=== PATIENT | male | born 1955 | race Caucasian/White ===

== ENCOUNTER → 2016-09-13 | Outpatient (CLI) | payer BC ==
[~2016-09-13] MED LIST: DOC-Q-LACE100 MG PO; GABAPENTIN300 MG PO; NAPROSYN-EC500 MG PO; OXAYDO7.5 MG; ZANTAC PO
--- NOTE | ~2016-09-13 | NM22 ---
[facility] A Service of [facility] & [facility] RADIOLOGY TEXT RESULTS PATIENT: NUBIA BURDEN LOCATION: CGUS : 55 UNIT #: [id number] AGE: [address]: Vidal Cruz MD SEX: M ORDER DR: [id number] [facility] [address] [place], [place] [address] [id number] O MR#: [id number] Acc #: [id number] NAME: NUBIA BURDEN : 1955 SEX: M STUDY DATE/TIME: 09/13/2016 8:07 UNIT: CGUS ROOM: STUDY DESCRIPTION: NM Hepatobiliary W GB Pharm Attending Physician: Vidal Cruz M.D. Ordering Physician: Vidal Cruz M.D. Primary Care Physician: Lexa Fuentes M.D. MEDICAL IMAGING REPORT This report is preliminary unless electronic signature is present EXAM Radionuclide biliary scan 09/13/2016 HISTORY Right upper quadrant pain. Right upper quadrant pain, cramping constantly worsens with fatty food, nausea, vomiting, alternating constipation, diarrhea, bloating 7-8 years, recently getting worse 2 months ago, attacks and last up to 10 hours, blood in stools a lot for about 10 years. FINDINGS Following intravenous administration of 5.66 mCi technetium 99m Choletec, static images of the abdomen obtained at 15-minute intervals over 60 minutes. The patient then received 1.4 mcg Kinevac by 30-minute intravenous infusion. Images obtained before and after Kinevac infusion. Region of interest drawn around gallbladder and gallbladder ejection fraction calculated. Homogeneous distribution of radiotracer throughout the liver at 15 minutes post administration. Radiotracer visualized in common bile duct and small bowel 15 minutes post administration. Radiotracer seen in the gallbladder at 30 minutes post administration. During initial hour of study radiotracer accumulates in gallbladder and small bowel. There is no evidence of acute cholecystitis or cystic duct obstruction. With 30-minute Kinevac infusion the 30-minute ejection fraction is 28.7%. This is below the normal value greater than or equal to 30%. The findings suggest some degree of gallbladder contractile dysfunction. Dictated by... Vidal Sevilla M.D. THIS IS AN ELECTRONICALLY VERIFIED REPORT Vidal Sevilla M.D. at 09/14/2016 6:32 PM [facility] A Service of [facility] RADIOLOGY TEXT RESULTS PATIENT: NUBIA BURDEN LOCATION: [facility] : 55 UNIT #: [id number] AGE: [address]: Vidal Cruz MD SEX: M ORDER DR: CHICO/bart TD: 09/13/2016 16:22 JOB #: [id number] MEDICAL IMAGING REPORT Page 1 of 1 COPY
--- NOTE | ~2016-09-13 | US6 ---
[facility] A Service of [facility] & [facility] RADIOLOGY TEXT RESULTS PATIENT: NUBIA BURDEN LOCATION: CGUS : 55 UNIT #: [id number] AGE: [address]: Vidal Cruz MD SEX: M ORDER DR: [id number] [facility] [address] [place], [place] [address] [id number] O MR#: [id number] Acc #: [id number] NAME: NUBIA BURDEN : 1955 SEX: M STUDY DATE/TIME: 09/13/2016 7:35 UNIT: CGUS ROOM: STUDY DESCRIPTION: US Abdominal Limited Attending Physician: Vidal Cruz M.D. Ordering Physician: Vidal Cruz M.D. Primary Care Physician: Lexa Fuentes M.D. MEDICAL IMAGING REPORT This report is preliminary unless electronic signature is present EXAM Right upper quadrant ultrasound 09/13 INDICATIONS Abdominal pain over the last 6 years. FINDINGS Sonographic evaluation is performed of the right quadrant in multiple planes. No comparison. One image shows an ovoid hypoechoic lesion at the mid body of the pancreas measuring about 1.6 x 1.0 cm. It is unknown if this is a blood vessel or a portion of the duct or a true lesion. Followup with pancreas protocol CT with and without contrast is recommended. Liver appears echogenic compatible with fatty infiltration. No focal liver lesion. Right kidney is morphologically normal and nonobstructed. Gallbladder is normal. No gallstones are seen. There is no gallbladder wall thickening. Common duct is normal at 2 mm internal diameter. IMPRESSION 1. The gallbladder is normal. 2. Hepatic steatosis. 3. Potential hypoechoic lesion in the body of the pancreas. Followup with pancreas protocol CT with and without contrast is recommended. Dictated by... Sammy Sotomayor Jr., M.D. THIS IS AN ELECTRONICALLY VERIFIED REPORT Sammy Sotomayor Jr., M.D. at 09/14/2016 5:53 AM BERTIN/bart TD: 09/13/2016 17:52 JOB #: [id number] [facility] A Service of [facility] & [facility] RADIOLOGY TEXT RESULTS PATIENT: NUBIA BURDEN LOCATION: [facility] #: [id number] : 55 UNIT #: [id number] AGE: [address]: Vidal Cruz MD SEX: M ORDER DR: MEDICAL IMAGING REPORT Page 1 of 1 COPY
== END | disposition home or self-care (01) ==
LOC: CGUS 07:06
DX: R10.11 Right upper quadrant pain (principal); K76.0 Fatty (change of) liver, not elsewhere classified; K86.89 Other specified diseases of pancreas
CPT/HCPCS: 76705; 78227; A9537; J2805

== ENCOUNTER → 2016-09-15 | Day surgery (SDC) | payer BC ==
--- NOTE | ~2016-09-15 | OR ---
Unit #: [id number] #: [id number] Patient: NUBIA BURDEN [id number] [address] [address] [id number] O MR#: [id number] NAME: NUBIA BURDEN ROOM: Date of Procedure: 09/15/2016 Admission Date: 09/15/2016 Surgeon: Vidal Cruz M.D. : 1955 Attending Physician: Vidal Cruz M.D. Primary Care Physician: Lexa Fuentes M.D. OPERATIVE REPORT PREOPERATIVE DIAGNOSES Abdominal pain, history of colonic polyps. POSTOPERATIVE DIAGNOSIS Severe sigmoid colitis. PROCEDURES PERFORMED 1. Colonoscopy to cecum. 2. Multiple biopsies of sigmoid colon. ANESTHESIA IV sedation. COMPLICATIONS None. INDICATIONS FOR PROCEDURE The patient is a 61-year-old gentleman, who presents with abdominal pain. He has had history of polyps. DESCRIPTION OF PROCEDURE The patient was taken to the operating theater and placed in left lateral decubitus position. IV sedation was initiated. Digital rectal exam was normal. Colonoscope was then passed under direct vision, navigated to the cecum. The patient had excellent prep. He has severe focal colitis probably measuring 15 cm encompassing the sigmoid colon in circumferential pattern. There were no diverticula noted. Biopsies were taken. Hemostasis was adequate. He tolerated the procedure well and sent to recovery room in good condition. PLAN We will treat with Flagyl for 10 days. We will follow up on biopsies. Dictated by... Vidal Cruz M.D. JNO/treasurel TD: 09/15/2016 14:11 JOB #: [id number] Unit #: [id number] #: [id number] Patient: NUBIA BURDEN OPERATIVE REPORT Page 1 of 1 X Vidal Cruz MD X PROCEDURE OPERATIVE NOTE
== END | disposition home or self-care (01) ==
LOC: COPS 09:14
DX: K52.9 Noninfective gastroenteritis and colitis, unspecified (principal); K21.9 Gastro-esophageal reflux disease without esophagitis; E78.00 Pure hypercholesterolemia, unspecified; F41.9 Anxiety disorder, unspecified; M17.9 Osteoarthritis of knee, unspecified; Z86.010 Personal history of colon polyps; Z79.899 Other long term (current) drug therapy; Z82.49 Family history of ischemic heart disease and other diseases of the circulatory system; Z83.3 Family history of diabetes mellitus
CPT/HCPCS: 88305

== ENCOUNTER → 2016-11-02 | Outpatient (CLI) | payer BC ==
--- NOTE | ~2016-11-02 | EKG ---
PATIENT: NUBIA BURDEN UNIT #: [id number] Ventricular Rate: 68 BPM Atrial Rate: 68 BPM P-R Interval: 176 ms QRS Duration: 90 ms Q-T Interval: 388 ms QTC Calculation(Bezet): 412 ms P Shelby: 44 degrees Calculated R Shelby: 19 degrees Calculated T Shelby: 27 degrees Diagnosis Line: Normal sinus rhythm Diagnosis Line: Normal ECG Diagnosis Line: No previous ECGs available Diagnosis Line: Confirmed by RAMON RILEY MD ([id number]) on Diagnosis Line: 11/03/2016 7:32:01 AM INTERPRETING MD: OSVALDO ZEE
[2016-11-02 09:23] LABS: HEMATOCRIT 44.6 % (38.0-50.0); MEAN CORPUSCULAR HEMOGLOBIN 30.2 PG (28-34); MEAN CORPUSCULAR HGB CONC 33.6 g/dL (30-36); MEAN PLATELET VOLUME 7.5 FL (6.5-11.5); RED BLOOD COUNT 4.95 X10e (3.90-5.60); RED CELL DISTRIBUTION WIDTH 13.5 % (11.0-15.5); WHITE BLOOD COUNT 7.4 X10e3 (4.0-10.5)
== END | disposition home or self-care (01) ==
LOC: CAMB 07:27
PROVIDERS: Surgery
DX: Z01.818 Encounter for other preprocedural examination (principal); K43.9 Ventral hernia without obstruction or gangrene
CPT/HCPCS: 36415; 85027; 93005

== ENCOUNTER → 2016-11-10 | Day surgery (SDC) | payer BC ==
--- NOTE | ~2016-11-10 | OR ---
Unit #: [id number] #: [id number] Patient: NUBIA BURDEN [id number] [address] [address] [id number] O MR#: [id number] NAME: NUBIA BURDEN ROOM: Date of Procedure: 11/10/2016 Admission Date: 11/10/2016 Surgeon: Vidal Cruz M.D. : 1955 Attending Physician: Vidal Cruz M.D. Referring Physician: Vidal Cruz M.D. Primary Care Physician: Lexa Fuentes M.D. OPERATIVE REPORT PREOPERATIVE DIAGNOSES 1. Recurrent incarcerated incisional hernias x2. 2. Symptomatic cholelithiasis. POSTOPERATIVE DIAGNOSES 1. Recurrent incarcerated incisional hernias x2. 2. Symptomatic cholelithiasis. 3. Hernia measuring 4 cm diameter and 2 cm in diameter. PROCEDURE PERFORMED 1. Laparoscopic ventral hernia repair of incarcerated incisional recurrent hernia x2. 2. Laparoscopic cholecystectomy. ANESTHESIA General. ESTIMATED BLOOD LOSS 50 mL. IV FLUIDS 800 crystalloid. COMPLICATIONS None. INDICATIONS FOR PROCEDURE The patient is a 61-year-old gentleman, who presents with the aforementioned diagnoses. He has had 2 previous hernia repairs. DESCRIPTION OF PROCEDURE The patient was taken to the operating theater and placed in supine position. General anesthesia was induced. The abdomen was prepped and draped. A 5-mm Optiview trocar was placed in the right upper quadrant without difficulty. The abdomen was insufflated to 15 mmHg with CO2. Under direct vision, I placed a subxiphoid 10 mm, right lateral 5 mm, and a supraumbilical 5 mm. The patient was found to have incarcerated hernia with 2 separate hernias, one at the umbilicus that was previously repaired with a Ventralex mesh, other at the epigastrium which was also repaired with a Ventralex mesh. The inferior one measured 2 cm with superior incisional hernia measured 4 cm. There was incarcerated omentum. This was taken down. I then turned my attention to the gallbladder. The Unit #: [id number] #: [id number] Patient: NUBIA BURDEN gallbladder had multiple adhesions. These were taken down as the gallbladder was retracted up over the liver. I dissected the neck of the gallbladder and identified the cystic duct. Its junction with the gallbladder was confirmed. It was thus skeletonized, doubly hemoclipped, and divided. The cystic artery laid immediately posterior. This was skeletonized, doubly hemoclipped, and divided. The gallbladder was removed from the gallbladder bed with Bovie electrocautery and delivered via the subxiphoid port. Hemostasis was adequate. I irrigated thoroughly with normal saline and aspirated all fluids dry. I then placed a left lower quadrant 5 mm port. I used an 8 x 10 Ventralight mesh. This was placed into position and held with single-stranded Vicryl sutures and delivered transcutaneous. This covered the defect by at least 5 cm in all circumference. This was then secured with SorbaFix Tacker with 2 circumferential rows of tacks, each 1.5 cm from the previous placed tack. Hemostasis was adequate. I removed the ports under direct vision and closed with bassam. The sutures were cut at skin level. The patient tolerated the procedure well and sent to recovery room in good condition. Dictated by... Lisa Simmons/kiran TD: 11/10/2016 13:58 JOB #: [id number] OPERATIVE REPORT Page 1 of 1 X Vidal Cruz MD X PROCEDURE OPERATIVE NOTE
== END | disposition home or self-care (01) ==
LOC: CSUR 11-06 09:00
DX: K81.1 Chronic cholecystitis (principal); K43.0 Incisional hernia with obstruction, without gangrene; K21.9 Gastro-esophageal reflux disease without esophagitis; F17.210 Nicotine dependence, cigarettes, uncomplicated; E66.9 Obesity, unspecified; M17.9 Osteoarthritis of knee, unspecified; Z68.32 Body mass index [BMI] 32.0-32.9, adult; Z98.890 Other specified postprocedural states; Z79.899 Other long term (current) drug therapy
CPT/HCPCS: 88304; C1781; J0131; J0330; J0690; J1100; J1170; J1885; J2250; J2405; J2710; J2765; J3010